=== PATIENT | male | born 1970 | race Caucasian/White ===

== ENCOUNTER 2017-07-01 05:30 | Emergency (ER) | payer OTHER, SELFPAY ==
[2017-07-01 05:31] VITALS: BP 187/106; PULSE 99; RESP 17; TEMP 36.5; O2SAT 99; BMI 32.3
--- NOTE | 2017-07-01 05:37 | NURSING ---
CALLED FOR EKG PER RN REQUEST, PULLED OLD EKG'S FOR
--- NOTE | 2017-07-01 05:43 | RAD_ITS ---
STUDY: X-RAY CHEST REASON FOR EXAM: Male, 47 years old. Left-sided chest pain TECHNIQUE: PA and lateral views of the chest. COMPARISON: None. FINDINGS: The lungs are clear and expanded. There is no demonstrated pleural abnormality. Normal size heart. Normal mediastinum and ladi. Normal visualized pulmonary arteries. Normal visualized aortic arch and descending thoracic aorta. Normal visualized thoracic spine. Normal visualized ribs, clavicles, and shoulders. There is no demonstrated abnormality of the visualized soft tissue structures of the upper abdomen. RAD/Chest PA and Lateral IMPRESSION: No pulmonary edema, congestive heart failure or confluent pneumonia. Electronically Signed: Vickie Marcelo MD at 6:47 EDT , Service support ,
--- NOTE | 2017-07-01 05:43 | EKG12_ITS ---
Test Reason : REPEAT CP Blood Pressure : / mmHG Vent. Rate : 077 BPM Atrial Rate : 077 BPM P-R Int : 126 ms QRS Dur : 082 ms QT Int : 376 ms P-R-T Axes : 001 030 035 degrees QTc Int : 425 ms Normal sinus rhythm Normal ECG Confirmed by JHONATHAN DONOHUE MD ([id number]), television news video editor GUTIERREZ ORTEGA ([id number]) on 07/04/2017 2:00:28 PM Referred By: JIMMY Confirmed By:JHONATHAN DONOHUE MD
[2017-07-01 05:58] VITALS: O2SAT 99
[2017-07-01 05:58] LABS: Absolute Lymphocyte Count 3.12 X10^3/ul (0.83-4.51); Absolute Neutrophil Count 3.5 X10^3/uL (2.0-7.7); Basophil# 0.06 X10^3/uL; Basophil% 0.7 % (0-1); Eosinophil# 0.55 X10^3/uL; Eosinophils% 6.8 % (0-5); Hematocrit 46.6 % (40-54); Hemoglobin 15.8 g/dl (13.0-16.5); Lymphocyte # 3.12 X10^3/ul (4.0); Lymphocyte % 38.8 % (19-41); Mean Corp Hgb Conc 33.9 g/gl (32-36); Mean Corpuscular Volume 88.6 fL (80-94); Mean Platelet Vol. 10.4 fl (6.2-12.0); Monocyte# 0.81 X10^3/uL; Monocyte% 10.1 % (0-10); Neutrophil # 3.48 X10^3/uL (2.7-7.7); Neutrophil % 43.4 % (47-70); Platelet Count 188 K/mm3 (150-450); RBC Distribution Width CV 13.1 % (11.6-14.6); RBC Distribution Width SD 42.1 fl (35.1-43.9); Red Blood Count 5.26 M/mm3 (4.6-6.2)
[2017-07-01] MEDS: Aspirin 81 MG TAB.CHEW 324 MG PO (05:59)
[2017-07-01 06:01] LABS: POSITIVE COUNT NO; POSITIVE DIFFERENTIAL NO; POSITIVE MORPHOLOGY NO
[2017-07-01 06:02] VITALS: BP 168/105; PULSE 83; RESP 12; O2SAT 99
[2017-07-01 06:05] LABS: Anion Gap 9 (5-15); BUN 21 mg/dL (7-18); BUN/Creat Ratio 19.3 RATIO (10-20); Calcium,Total 8.6 mg/dL (8.5-10.1); Chloride 105 mmol/L (98-107); Creatinine, Serum 1.09 mg/dL (0.70-1.30); EST Glomerular Filtration Rate 76 mL/min (>60); Est Glom Filt Rate - Afr Amer 92 mL/min (>60); Estimated Creatinine Clearance 81.98 ml/min; Glucose 107 mg/dL (74-106); Potassium 3.8 mmol/L (3.5-5.1); Sodium Level 140 mmol/L (136-145)
--- NOTE | 2017-07-01 06:08 | EKG12_ITS ---
Test Reason : CP Blood Pressure : / mmHG Vent. Rate : 100 BPM Atrial Rate : 100 BPM P-R Int : 130 ms QRS Dur : 080 ms QT Int : 352 ms P-R-T Axes : 044 053 059 degrees QTc Int : 454 ms Normal sinus rhythm Normal ECG Confirmed by JHONATHAN DONOHUE MD ([id number]), film and video editor GUTIERREZ ORTEGA ([id number]) on 07/04/2017 2:00:10 PM Referred By: JUAN Confirmed By:JHONATHAN DONOHUE MD
--- NOTE | 2017-07-01 06:23 | ED.DCSUM_ITS ---
- ER Visit Summary Date of Service: 07/01/17 Chief Complaint: Chest pain History of Present Illness: The patient is a 47 M who presents with chest pain. It began yesterday. He notes that he was digging some holes earlier in the day and initially attributed this to a muscle strain. He complains of a tightness in his left chest which radiates towards his shoulder. No associated symptoms such as diaphoresis nausea vomiting or shortness of breath. No history of exertional symptoms. No history of prior similar symptoms. His tightness is only mild currently. He denies any medical history. He is not a smoker. There is no family history of coronary disease. Physical Examination: Afebrile blood pressure 187/106 vitals otherwise unremarkable Moist mucous membranes Heart regular rate and rhythm Lungs are clear Abdomen soft Extremities nontender no edema 2+ symmetric radial pulses Test Results: EKG shows normal sinus rhythm at a rate of 100 with no acute ischemic changes. Repeat EKG shows normal sinus rhythm at a rate of 77 unchanged from prior. Two-view chest x-ray on my review shows no acute process. Laboratory studies unremarkable. Emergency Department Course and Treatment: Patient presents with atypical chest pain. He has no associated symptoms such as shortness of breath nausea or diaphoresis. He has no exertional symptoms. CRISTI risk score is 0. Heart score is 1 based on age. I do feel he is low risk. Repeat EKG remained unremarkable. We will obtain a 2 hour repeat troponin. This will be signed out to the oncoming physician. If normal I do believe the patient can be discharged home to follow-up as an outpatient. He was advised of his elevated blood pressure and the need for follow-up. He was also advised that he may require further outpatient workup including a stress test. He understands to return for new or worsening symptoms. Treatment Plan: [] Disposition: Pending repeat troponin Impression: Chest pain This note was generated with [employer] dictation software. It may contain incorrect words, spelling, and punctuation that were not noted in review of the chart prior to signing ED Disposition - Plan for ED Patient: Chief Complaint: Chest Pain Referrals: Tuan Yancey DO [Primary Care Provider] -
--- NOTE | 2017-07-01 06:23 | ED.DEP ---
ED Disposition - Plan for ED Patient: Chief Complaint: Chest Pain Instructions: ED Chest Pain Atypical Unkn Cause Referrals: Tuan Yancey DO [Primary Care Provider] -
[2017-07-01 07:15] VITALS: BP 128/89; PULSE 73; RESP 16; O2SAT 95
[2017-07-01 08:43] VITALS: BP 115/88; PULSE 62; RESP 14; O2SAT 97
== END 2017-07-01 08:44 | disposition home or self-care (01) ==
PROVIDERS: Emergency Provider Emergency Medicine; Family Provider Family Medicine; PCP Family Medicine
DX: R07.89 Other chest pain (principal); R03.0 Elevated blood-pressure reading, without diagnosis of hypertension
CPT/HCPCS: 71046; 80048; 84484; 85025; 93005; 99285; A4216

== ENCOUNTER → 2018-09-18 14:11 | Outpatient (CLI) | payer OTHER, SELFPAY ==
[2018-09-18 11:12] VITALS: BMI 32.3
== END ==
PROVIDERS: Family Provider Family Medicine; PCP Family Medicine; Referring Provider Physician Assistant Surgical; Visit Provider Physician Assistant Surgical
DX: J02.9 Acute pharyngitis, unspecified (principal)
CPT/HCPCS: 87081

== ENCOUNTER → 2020-04-24 10:00 | Outpatient (CLI) | payer OTHER, SELFPAY ==
[2020-04-20 14:52] VITALS: BMI 29.0
[2020-04-24 12:47] LABS: Absolute Lymphocyte Count 1.56 X10^3/uL (0.83-4.51); Absolute Neutrophil Count 3.6 X10^3/uL (2.0-7.7); Basophil# 0.08 X10^3/uL; Basophil% 1.3 % (0-1); Eosinophil# 0.27 X10^3/uL; Eosinophils% 4.3 % (0-5); Hematocrit 46.7 % (40-54); Hemoglobin 15.6 g/dL (13.0-16.5); Lymphocyte # 1.56 X10^3/ul (4.0); Lymphocyte % 24.8 % (19-41); Mean Corp Hgb Conc 33.4 g/dL (32-36); Mean Corpuscular Hgb 29.8 pg (27.0-32.0); Mean Corpuscular Volume 89.3 fL (80-94); Monocyte# 0.77 X10^3/uL; Monocyte% 12.3 % (0-10); NRBC Flagged by Analyzer 0 % (0-5); Neutrophil # 3.59 X10^3/uL (2.7-7.7); Neutrophil % 57.1 % (47-70); Platelet Count 186 K/mm3 (150-450); RBC Distribution Width CV 12.3 % (11.6-14.6); RBC Distribution Width SD 40.4 fl (35.1-43.9); Red Blood Count 5.23 M/mm3 (4.6-6.2); White Blood Count 6.3 K/mm3 (4.4-11.0)
[2020-04-24 13:03] LABS: ALB/GLOB Ratio 1.1 RATIO (0.9-2.4); AST(SGOT) 14 U/L (15-37); Alanine Aminotransfer ALT/SGPT 35 U/L (16-61); Albumin, Serum 3.6 g/dL (3.2-5.0); Alkaline Phosphatase 66 U/L (45-117); Anion Gap 5 (5-15); BUN 18 mg/dL (7-18); BUN/Creat Ratio 18.4 RATIO (10-20); Calcium,Total 8.9 mg/dL (8.5-10.1); Chloride 110 mmol/L (98-107); Cholesterol 198 mg/dL (200); Creatinine, Serum 0.98 mg/dL (0.70-1.30); EST Glomerular Filtration Rate 85 mL/min (>60); Est Glom Filt Rate - Afr Amer 103 mL/min (>60); Globulin 3.4 g/dL (2.2-4.2); Glucose 86 mg/dL (74-106); High Density Lipoprotein 43 mg/dL; PSA,Total - Annual Screen 4.13 ng/mL (0.00-4.00); Potassium 3.8 mmol/L (3.5-5.1); Sodium Level 142 mmol/L (136-145); Triglycerides 124 mg/dL; Very Low Density Lipoprotein 25 mg/dL (5-40)
== END ==
PROVIDERS: PCP Internal Medicine; Referring Provider Internal Medicine; Visit Provider Internal Medicine
DX: Z13.220 Encounter for screening for lipoid disorders (principal); Z13.1 Encounter for screening for diabetes mellitus
CPT/HCPCS: 36415; 80053; 80061; 84153; 85025; G0103

== ENCOUNTER 2020-05-16 05:56 | Day surgery (SDC) | payer OTHER, SELFPAY ==
[2020-04-20 14:52] VITALS: BMI 29.0
[2020-05-16] VITALS (10 sets, daily range): BP systolic 102–157; BP diastolic 60–112; PULSE 77–92; RESP 16–18; TEMP 36.4–37.2; O2SAT 94–100; BMI 28.5
--- NOTE | 2020-05-16 06:18 | PCM.HP.STD ---
Problem List (1) Screening for intestinal cancer Status: Acute History of Present Illness Date of Admission: 05/16/20 The patient is a 50 year old M who presents today for screening colonoscopy. He has not had a previous one. He presents via open access. He has no specific complaints today. He denies abdominal pain or bright red blood per rectum or melena. He denies family history of colon cancer or polyps Past Medical History Allergies No Known Allergies Allergy (Verified 05/09/20 14:46) Home Medications: Ambulatory Orders Medication Instructions Recorded NK 05/09/20 Smoking Status: Never smoker Tobacco Use: Non-smoker Review of Systems Constitutional: Denies: Fever Cardiovascular: Denies: Chest Pain Respiratory: Denies: Cough, Shortness of Breath Gastrointestinal: Denies: Abdominal Pain, Hematochezia, Melena Endocrine: Denies: Change in Body Habitus VTE Information - Inpt Only VTE Present on Admission: No - Physical Exam Vitals/I&O's: Body Mass Index (BMI) 29.0 General: Alert, Oriented x3, Cooperative, No apparent distress HEENT: Atraumatic Oral: Moist Mucosa Neck: Supple Lungs: Clear to auscultation, Normal air movement Cardiovascular: Regular rate, Regular Rhythm Abdomen: Bowel Sounds Present, Soft, Non Tender Extremities: No Calf Tenderness Psych/Mental Status: Normal Affect Microbiology Past 72 Hours 05/15/20 10:15 Interface Orders SARS-CoV-2 Antigen (Rapid) - Final Assessment/Plan All Active Problems (Last Reviewed 04/20/20 @ 14:52 by Isaura Fallon) Screening for intestinal cancer (Acute) Sinusitis, acute (Acute) The patient presents via open access today. We will proceed with a screening colonoscopy with possible biopsy or polypectomy as indicated. He has had an opportunity to ask and have questions answered. He states that he tolerated his bowel prep well. We will proceed as noted. Warren Doan M.D., F.A.C.S. Procedure Criteria Procedure Type: Elective COVID Risk Discussion: The surgeon/proceduralist and patient have discussed in detail the risk of exposure to and/or potential harm posed by the COVID-19 virus with having a surgery/procedure at this time versus the risk of delaying the surgery/procedure. It is not possible to know either the risk of delaying the surgery or procedure or chance of getting an infection with perfect accuracy, but a joint decision was made between the patient and the surgeon/proceduralist to proceed at this time with the scheduled surgery/procedure as indicated on the consent form.
[2020-05-16] MEDS: Lactated Ringers 1,000 ML 100 ML IV (06:31)
--- NOTE | 2020-05-16 07:32 | OP.CCLET_ITS ---
05/16/2020 Michell Bruno [facility] [address] [place] [address] Re : Colonoscopy procedure for Ty Katia Dear Dr. Bruno This procedure was performed on Saturday, May 16, 2020. My impressions and recommendations are as follows: Impressions : - The entire examined colon is normal. - No specimens collected. Recommendations : - Discharge patient to home. - Resume previous diet. - Continue present medications. - Repeat colonoscopy in 10 years for screening purposes. My findings are described in the full procedure note, which is enclosed. If I can be of further assistance, please feel free to contact me at Doctor phone number(s): Work: . Sincerely, Warren Doan MD 05/16/2020 7:32:02 AM This report has been signed electronically.
--- NOTE | 2020-05-16 07:32 | OP.COLON_ITS ---
Patient Name: Ty Montalvo Procedure Date: 05/16/2020 7:05 AM Date of : 1970 Age: 50 Procedure: Colonoscopy Indications: Screening for colorectal malignant neoplasm Providers: Warren Doan MD Referring MD: Michell Bruno Medicines: Midazolam 5 mg IV, Meperidine 100 mg IV Patient Profile: Last Colonoscopy: none. The patient's first colonoscopy is today. Complications: No immediate complications. Procedure: Pre-Anesthesia Assessment: - Prior to the procedure, a History and Physical was performed, and patient medications and allergies were reviewed. The patient's tolerance of previous anesthesia was also reviewed. The risks and benefits of the procedure and the sedation options and risks were discussed with the patient. All questions were answered, and informed consent was obtained. Prior Anticoagulants: The patient has taken no previous anticoagulant or antiplatelet agents. ASA Grade Assessment: I - A normal, healthy patient. After reviewing the risks and benefits, the patient was deemed in satisfactory condition to undergo the procedure. After I obtained informed consent, the scope was passed under direct vision. Throughout the procedure, the patient's blood pressure, pulse, and oxygen saturations were monitored continuously. The adult colonoscope was introduced through the anus and advanced to the cecum, identified by appendiceal orifice and ileocecal valve. The colonoscopy was performed without difficulty. The patient tolerated the procedure well. The quality of the bowel preparation was good. The ileocecal valve and the appendiceal orifice were photographed. Moderate Sedation: Moderate (conscious) sedation was personally administered by the endoscopist. The following parameters were monitored: oxygen saturation, heart rate, blood pressure, and response to care. Total physician intraservice time was 15 minutes. Scope In: 7:16:59 AM Scope Withdrawal Time 0 hours 6 minutes 37 seconds Scope Out: 7:27:43 AM Total Procedure Duration Time 0 hours 10 minutes 44 seconds Findings: The perianal examination was normal. The colon (entire examined portion) appeared normal. Impression: - The entire examined colon is normal. - No specimens collected. Recommendation: - Discharge patient to home. - Resume previous diet. - Continue present medications. - Repeat colonoscopy in 10 years for screening purposes. Procedure Code(s): --- Professional --- 31014, Colonoscopy, flexible; diagnostic, including collection of specimen(s) by brushing or washing, when performed (separate procedure) 66588, 59, Moderate sedation services provided by the same physician or other qualified health career and guidance counselor performing the diagnostic or therapeutic service that the sedation supports, requiring the presence of an independent trained observer to assist in the monitoring of the patient's level of consciousness and physiological status; initial 15 minutes of intraservice time, patient age 5 years or older Diagnosis Code(s): --- Professional --- Z12.11, Encounter for screening for malignant neoplasm of colon CPT copyright 2017 [employer]. All rights reserved. The codes documented in this report are preliminary and upon clinical coder review may be revised to meet current compliance requirements. Warren Doan MD 05/16/2020 7:32:02 AM This report has been signed electronically. Number of Addenda: 0 Note Initiated On: 05/16/2020 7:05 AM
== END 2020-05-16 08:13 | disposition home or self-care (01) ==
LOC: EN 05:57 → AC 05:57
PROVIDERS: PCP Internal Medicine; Referring Provider Internal Medicine; Visit Provider Surgery
PROC: 0DJD8ZZ Inspection of Lower Intestinal Tract, Via Natural or Artificial Opening Endoscopic (ICD-10-PCS; CPT 45378; principal; 2020-05-16 06:55)
DX: Z12.11 Encounter for screening for malignant neoplasm of colon (principal); J01.90 Acute sinusitis, unspecified; Z20.822 Contact with and (suspected) exposure to COVID-19
CPT/HCPCS: 45378; 87426; 99152; 99153; C9803; J7120

== ENCOUNTER → 2020-08-03 13:59 | Outpatient (CLI) | payer OTHER, SELFPAY ==
[2020-05-16 06:22] VITALS: BMI 28.5
[2020-08-03 15:46] LABS: ALB/GLOB Ratio 1.2 RATIO (0.9-2.4); AST(SGOT) 20 U/L (15-37); Alanine Aminotransfer ALT/SGPT 39 U/L (16-61); Albumin, Serum 3.7 g/dL (3.2-5.0); Alkaline Phosphatase 68 U/L (45-117); Anion Gap 4 (5-15); BUN 21 mg/dL (7-18); BUN/Creat Ratio 21.5 RATIO (10-20); Calcium,Total 8.8 mg/dL (8.5-10.1); Chloride 107 mmol/L (98-107); Creatinine, Serum 0.98 mg/dL (0.70-1.30); EST Glomerular Filtration Rate 86 mL/min (>60); Est Glom Filt Rate - Afr Amer 104 mL/min (>60); Globulin 3.2 g/dL (2.2-4.2); Glucose 102 mg/dL (74-106); PSA,Total- Diagnostic 2.55 ng/mL (0.0-4.0); Potassium 3.5 mmol/L (3.5-5.1); Protein, Total 6.9 g/dL (6.4-8.2); Sodium Level 140 mmol/L (136-145)
== END ==
PROVIDERS: PCP Internal Medicine; Referring Provider Internal Medicine; Visit Provider Internal Medicine
DX: R97.20 Elevated prostate specific antigen [PSA] (principal); R17 Unspecified jaundice
CPT/HCPCS: 36415; 80053; 84153

== ENCOUNTER 2021-06-20 11:11 | Outpatient (CLI) | payer OTHER, SELFPAY ==
[2021-06-20 12:01] LABS: Absolute Lymphocyte Count 1.89 X10^3/uL (0.83-4.51); Absolute Neutrophil Count 5.7 X10^3/uL (2.0-7.7); Basophil# 0.07 X10^3/uL; Basophil% 0.8 % (0-1); Eosinophil# 0.34 X10^3/uL; Eosinophils% 3.8 % (0-5); Hematocrit 46.8 % (40-54); Hemoglobin 15.7 g/dL (13.0-16.5); Lymphocyte # 1.89 X10^3/ul (0.83-4.51); Lymphocyte % 20.9 % (19-41); Mean Corp Hgb Conc 33.5 g/dL (32-36); Mean Corpuscular Hgb 29.6 pg (27.0-32.0); Mean Corpuscular Volume 88.3 fL (80-94); Mean Platelet Vol. 10.8 fl (6.2-12.0); Monocyte# 0.99 X10^3/uL; Monocyte% 10.9 % (0-10); NRBC Flagged by Analyzer 0 % (0-5); Neutrophil # 5.73 X10^3/uL (2.7-7.7); Neutrophil % 63.3 % (47-70); Platelet Count 203 K/mm3 (150-450); RBC Distribution Width CV 12.2 % (11.6-14.6); RBC Distribution Width SD 39.8 fl (35.1-43.9); White Blood Count 9.1 K/mm3 (4.4-11.0)
[2021-06-20 12:28] LABS: Vitamin D,25 Hydroxy 17.7 ng/mL
[2021-06-20 12:38] LABS: ALB/GLOB Ratio 0.8 RATIO (0.9-2.4); AST(SGOT) 22 U/L (15-37); Alanine Aminotransfer ALT/SGPT 35 U/L (16-61); Alkaline Phosphatase 59 U/L (45-117); Anion Gap 7 (5-15); BUN 20 mg/dL (7-18); BUN/Creat Ratio 20.3 RATIO (10-20); Calcium,Total 8.8 mg/dL (8.5-10.1); Chloride 107 mmol/L (98-107); Creatinine, Serum 0.99 mg/dL (0.70-1.30); EST Glomerular Filtration Rate 84 mL/min (>60); Est Glom Filt Rate - Afr Amer 102 mL/min (>60); Globulin 3.7 g/dL (2.2-4.2); Glucose 91 mg/dL (74-106); PSA,Total- Diagnostic 2.49 ng/mL (0.0-4.0); Potassium 4.4 mmol/L (3.5-5.1); Protein, Total 6.7 g/dL (6.4-8.2); Sodium Level 140 mmol/L (136-145)
== END 2021-06-20 23:59 | disposition home or self-care (01) ==
PROVIDERS: PCP Internal Medicine; Referring Provider Internal Medicine; Visit Provider Internal Medicine
DX: E55.9 Vitamin D deficiency, unspecified (principal); R97.20 Elevated prostate specific antigen [PSA]; Z12.5 Encounter for screening for malignant neoplasm of prostate
CPT/HCPCS: 36415; 80053; 82306; 84153; 85025

== ENCOUNTER → 2021-09-06 | Outpatient (CLI) | payer OTHER, SELFPAY ==
[2021-09-06 12:26] LABS: Vitamin D,25 Hydroxy 91.4 ng/mL
[2021-09-06 12:38] LABS: Ferritin 74 ng/mL (26-388); Iron 77 ug/dL (65-175); Iron Binding Capacity,Total 307 ug/dL (250-450); PERCENT IRON SATURATION 25.1 % (15.0-55.0)
== END | disposition home or self-care (01) ==
LOC: BIMLAB 09:52
PROVIDERS: PCP Internal Medicine; Referring Provider Internal Medicine; Visit Provider Internal Medicine
DX: E55.9 Vitamin D deficiency, unspecified (principal); R53.83 Other fatigue
CPT/HCPCS: 36415; 82306; 82728; 83540; 83550

== ENCOUNTER → 2022-07-18 | Outpatient (CLI) | payer OTHER, SELFPAY ==
[2022-07-18 12:42] LABS: Absolute Lymphocyte Count 1.08 X10^3/uL (0.83-4.51); Absolute Neutrophil Count 5.4 X10^3/uL (2.0-7.7); Basophil# 0.07 X10^3/uL; Basophil% 0.9 % (0-1); Eosinophil# 0.11 X10^3/uL; Eosinophils% 1.4 % (0-5); Hemoglobin 15.3 g/dL (13.0-16.5); Lymphocyte # 1.08 X10^3/ul (0.83-4.51); Lymphocyte % 14.2 % (19-41); Mean Corp Hgb Conc 33.3 g/dL (32-36); Mean Corpuscular Hgb 29.5 pg (27.0-32.0); Mean Corpuscular Volume 88.8 fL (80-94); Mean Platelet Vol. 11.3 fl (6.2-12.0); Monocyte# 0.91 X10^3/uL; NRBC Flagged by Analyzer 0 % (0-5); Neutrophil # 5.41 X10^3/uL (2.7-7.7); Neutrophil % 71.2 % (47-70); Platelet Count 195 K/mm3 (150-450); RBC Distribution Width CV 12.5 % (11.6-14.6); RBC Distribution Width SD 40.9 fl (35.1-43.9); Red Blood Count 5.18 M/mm3 (4.6-6.2); White Blood Count 7.6 K/mm3 (4.4-11.0)
[2022-07-18 13:08] LABS: ALB/GLOB Ratio 0.9 RATIO (0.9-2.4); AST(SGOT) 23 U/L (15-37); Alanine Aminotransfer ALT/SGPT 34 U/L (16-61); Albumin, Serum 3.3 g/dL (3.2-5.0); Alkaline Phosphatase 57 U/L (45-117); Anion Gap 3 (5-15); BUN 22 mg/dL (7-18); BUN/Creat Ratio 21.6 RATIO (10-20); Calcium,Total 9.3 mg/dL (8.5-10.1); Chloride 108 mmol/L (98-107); Cholesterol 207 mg/dL (200); Creatinine, Serum 1.02 mg/dL (0.70-1.30); EST Glomerular Filtration Rate 81 mL/min (>60); Est Glom Filt Rate - Afr Amer 98 mL/min (>60); Globulin 3.7 g/dL (2.2-4.2); Glucose 90 mg/dL (74-106); High Density Lipoprotein 47 mg/dL; PSA,Total - Annual Screen 3.28 ng/mL (0.00-4.00); Potassium 3.9 mmol/L (3.5-5.1); Sodium Level 140 mmol/L (136-145); Triglycerides 147 mg/dL; Very Low Density Lipoprotein 29 mg/dL (5-40)
== END | disposition home or self-care (01) ==
LOC: LAB 11:48
PROVIDERS: PCP Internal Medicine; Referring Provider Internal Medicine; Visit Provider Internal Medicine
DX: Z00.00 Encounter for general adult medical examination without abnormal findings (principal); Z13.220 Encounter for screening for lipoid disorders; Z12.5 Encounter for screening for malignant neoplasm of prostate
CPT/HCPCS: 36415; 80053; 80061; 84153; 85025; G0103

== ENCOUNTER → 2023-08-07 | Outpatient (CLI) | payer OTHER, SELFPAY ==
[2023-08-07 12:19] LABS: Absolute Lymphocyte Count 0.77 X10^3/uL (0.83-4.51); Absolute Neutrophil Count 3.2 X10^3/uL (2.0-7.7); Basophil# 0.06 X10^3/uL; Basophil% 1.2 % (0-1); Eosinophil# 0.13 X10^3/uL; Eosinophils% 2.7 % (0-5); Hematocrit 44.7 % (40-54); Hemoglobin 14.8 g/dL (13.0-16.5); Lymphocyte # 0.77 X10^3/ul (0.83-4.51); Lymphocyte % 15.9 % (19-41); Mean Corp Hgb Conc 33.1 g/dL (32-36); Mean Corpuscular Hgb 29.7 pg (27.0-32.0); Mean Corpuscular Volume 89.8 fL (80-94); Mean Platelet Vol. 11.2 fl (6.2-12.0); Monocyte# 0.67 X10^3/uL; Monocyte% 13.9 % (0-10); NRBC Flagged by Analyzer 0 % (0-5); Neutrophil # 3.19 X10^3/uL (2.7-7.7); Neutrophil % 66.1 % (47-70); Platelet Count 170 K/mm3 (150-450); RBC Distribution Width SD 42.4 fl (35.1-43.9); Red Blood Count 4.98 M/mm3 (4.6-6.2); White Blood Count 4.8 K/mm3 (4.4-11.0)
[2023-08-07 12:41] LABS: Vitamin D,25 Hydroxy 42.1 ng/mL
[2023-08-07 13:08] LABS: ALB/GLOB Ratio 0.9 RATIO (0.9-2.4); AST(SGOT) 20 U/L (15-37); Alanine Aminotransfer ALT/SGPT 28 U/L (16-61); Albumin, Serum 3.4 g/dL (3.2-5.0); Alkaline Phosphatase 57 U/L (45-117); Anion Gap 4 (5-15); BUN 17 mg/dL (7-18); BUN/Creat Ratio 16.3 RATIO (10-20); Calcium,Total 8.7 mg/dL (8.5-10.1); Chloride 107 mmol/L (98-107); Cholesterol 154 mg/dL (200); Creatinine, Serum 1.04 mg/dL (0.70-1.30); EST Glomerular Filtration Rate 79 mL/min (>60); Est Glom Filt Rate - Afr Amer 95 mL/min (>60); Globulin 3.6 g/dL (2.2-4.2); Glucose 95 mg/dL (74-106); High Density Lipoprotein 41 mg/dL; PSA,Total - Annual Screen 3.31 ng/mL (0.00-4.00); Potassium 4.4 mmol/L (3.5-5.1); Sodium Level 139 mmol/L (136-145); Thyroid Stim Hormone (TSH) 0.84 uIU/mL (0.358-3.74); Triglycerides 66 mg/dL; Very Low Density Lipoprotein 13 mg/dL (5-40)
== END | disposition home or self-care (01) ==
LOC: BIMLAB 09:39
PROVIDERS: PCP Internal Medicine; Visit Provider Internal Medicine
DX: Z00.00 Encounter for general adult medical examination without abnormal findings (principal); Z13.220 Encounter for screening for lipoid disorders; E55.9 Vitamin D deficiency, unspecified; Z12.5 Encounter for screening for malignant neoplasm of prostate
CPT/HCPCS: 36415; 80053; 80061; 82306; 84153; 84443; 85025; G0103

== ENCOUNTER → 2025-01-19 | Outpatient (CLI) | payer OTHER, SELFPAY ==
[2025-01-19 11:58] LABS: Hematocrit 44.0 % (40-54); Hemoglobin 14.8 g/dL (13.0-16.5); Immature Granulocytes Count 0.010 X10^3/uL (0.0-0.0); Mean Corp Hgb Conc 33.6 g/dL (32-36); Mean Corpuscular Volume 86.6 fL (80-94); Mean Platelet Vol. 10.4 fl (6.2-12.0); NRBC Flagged by Analyzer 0 % (0-5); Platelet Count 168 K/mm3 (150-450); RBC Distribution Width CV 12.6 % (11.6-14.6); RBC Distribution Width SD 39.8 fl (35.1-43.9); Red Blood Count 5.08 M/mm3 (4.6-6.2); White Blood Count 5.5 K/mm3 (4.4-11.0)
[2025-01-19 12:36] LABS: AST(SGOT) 23 U/L (<=37); Alanine Aminotransfer ALT/SGPT 21 U/L (<=46); Albumin, Serum 3.8 g/dL (3.5-5.0); Alkaline Phosphatase 69 U/L (40-129); Anion Gap 9 (5-15); BUN 16 mg/dL (4-19); BUN/Creat Ratio 17.5 RATIO (10-20); Calcium,Total 8.8 mg/dL (7.6-11.0); Carbon Dioxide 25.7 mmol/L (21.0-32.0); Chloride 105 mmol/L (98-108); Cholesterol 197 mg/dL (<=200); Globulin 3.1 g/dL (2.2-4.2); Glucose 92 mg/dL (70-99); Low Density Lipoprotein Calc. 130 mg/dL; Magnesium 2.1 mg/dL (1.5-2.2); PSA,Total - Annual Screen 3.76 ng/mL (0.02-4.00); Potassium 4.5 mmol/L (3.3-5.1); Triglycerides 114 mg/dL; Very Low Density Lipoprotein 23 mg/dL (5-40); Vitamin B12 298 pg/mL (180-914); Vitamin D,25 Hydroxy 24.4 ng/mL (30-100); cholesterol:hdl ratio screen 4.48
== END | disposition home or self-care (01) ==
PROVIDERS: PCP Internal Medicine; Referring Provider Internal Medicine; Visit Provider Internal Medicine
DX: Z00.00 Encounter for general adult medical examination without abnormal findings (principal); R97.20 Elevated prostate specific antigen [PSA]; E55.9 Vitamin D deficiency, unspecified; G51.0 Bell's palsy; E53.8 Deficiency of other specified B group vitamins; Z12.5 Encounter for screening for malignant neoplasm of prostate
CPT/HCPCS: 36415; 80053; 80061; 82306; 82607; 83735; 84153; 84443; 85025; G0103

== ENCOUNTER 2025-01-28 06:28 | Emergency (ER) | payer OTHER, SELFPAY ==
--- NOTE | 2025-01-28 | RAD_ITS ---
PROCEDURE: CHEST PA AND LATERAL 01/28/2025 REASON FOR EXAM: CHEST PAIN TECHNIQUE: Procedure Code: RADCXR Modality: DX Procedure: CHEST PA AND LATERAL COMPARISON: None. FINDINGS: Hardware and support lines: None. Heart: Negative. Lungs: Negative for infiltrates, or pulmonary edema. Pleura: No pleural thickening. No pleural effusion. Mediastinum and aorta: Negative for hilar adenopathy. Mildly tortuous thoracic aorta. Bones: Degenerative changes of the shoulders. Age-appropriate degenerative changes of the spine. Other: Remainder of the exam negative. RAD/Chest PA and Lateral IMPRESSION: Negative for acute cardiopulmonary disease. Reading Location: [id number]
[2025-01-28 06:28] VITALS: BP 211/106; PULSE 104; RESP 18; TEMP 36.6; O2SAT 100; BMI 29.3
[2025-01-28 06:33] VITALS: BP 202/91; PULSE 83; RESP 15; O2SAT 100
--- NOTE | 2025-01-28 06:45 | EKG12_ITS ---
Test Reason : CP Blood Pressure : */* mmHG Vent. Rate : 83 BPM Atrial Rate : 83 BPM P-R Int : 124 ms QRS Dur : 92 ms QT Int : 364 ms P-R-T Axes : 3 34 51 degrees QTcB Int : 427 ms Normal sinus rhythm Normal ECG Confirmed by CHARANJIT RODRIGUEZ, JHONATHAN ([id number]), editorial assistant ANUPAM PATEL ([id number]) on 01/31/2025 6:58:42 AM Referred By: HARVEY Confirmed By: JHONATHAN DONOHUE MD
--- NOTE | 2025-01-28 06:56 | EX.ED.DYSGE1 ---
HPI History of Present Illness Chief Complaint: Chest Pain Informant: patient Narrative Narrative: Patient is a 54-year-old male with recent diagnosis of hypertension. He started on amlodipine yesterday. He states he woke this morning and then noticed midsternal to left-sided chest pain radiating towards his left arm. He states there is no associated nausea vomiting or diaphoresis with this. However with his new onset hypertension he is concerned this could be cardiac in nature and secondary to this comes in for evaluation [facility] Medical History Elevated PSA Essential hypertension Facial pain Holcomb's palsy Home Medications ?Medication ?Instructions ?Recorded ?Last Taken ?Type amlodipine 10 mg tablet 10 mg PO QDAY #60 tabs 01/27/25 Unknown Rx Allergy/AdvReac Type Severity Reaction Status Date / Time No Known Allergies Allergy Verified 01/28/25 06:33 Surgical History No history of previous surgery Social History Smoking Status: Never smoker alcohol intake: never substance use type: does not use ROS ROS ED Constitutional Constitutional ED: Denies chills or fever(s) Eyes Eyes: Denies blurry vision or change in vision ENT ENT ED: Denies sore throat Cardiovascular Cardiovascular: Reports chest pain; Denies palpitations or racing heartbeat Respiratory/Chest Respiratory/Chest: Denies cough or dyspnea Gastrointestinal Gastrointestinal: Denies abdominal pain, diarrhea, nausea or vomiting Musculoskeletal Musculoskeletal: Denies back pain Integumentary Denies rash Neurologic Neurologic: Denies headache(s) Psychiatric Psychiatric: Reports anxiety Hematologic/Lymphatic Hematologic/Lymphatic: Denies easy bleeding or easy bruising EXAM Physical Exam Const Vital Signs: 01/28/25 06:28 01/28/25 06:33 01/28/25 07:28 Temperature 97.8 F Temperature Source Oral Pulse Rate 104 H 83 67 Respiratory Rate 18 15 16 Blood Pressure 211/106 H 202/91 H Blood Pressure Mean 141 128 Pulse Ox 100 100 96 Oxygen Delivery Method Room Air Room Air Room Air 01/28/25 08:16 Temperature Temperature Source Pulse Rate 69 Respiratory Rate 18 Blood Pressure 139/87 H Blood Pressure Mean 104 Pulse Ox 97 Oxygen Delivery Method Room Air Positive well nourished and well developed General Appearance ED: well developed; Negative for pallor HEENT HEENT Narrative: Normocephalic atraumatic Eyes PERRL and EOMs intact bilaterally General Eye ED: Negative for scleral icterus Neck supple and no JVD Neck Narrative: No nuchal rigidity or meningeal signs Chest Wall palpation of chest normal Resp normal respiratory effort and clear to auscultation bilaterally Cardio regular rate and regular rhythm Rate: other Other Details: Heart is regular rate and rhythm without murmurs rubs or gallop Radial and carotid pulses are equal and symmetric No carotid bruit noted GI normal to inspection, nondistended, normoactive bowel sounds, non-tender, non-distended and no masses GI Narrative: No voluntary guarding or rigidity no pulsatile mass or fluid wave Auscultation: normoactive bowel sounds Palpation: soft Extremity normal to inspection Extremity Narrative: No asymmetric edema no pitting edema negative Homans' sign bilaterally Neuro oriented x3, CN's II-XII intact bilaterally and no sensory deficits noted Sensorium / Orientation: alert Motor Exam: strength 5/5 throughout Psych Mood & Affect: anxious Skin no rashes or lesions noted General Skin Exam: Negative for jaundice or pallor MDM MDM MDM Narrative Medical decision making narrative: Patient arrived to the ER hypertensive but otherwise with stable vitals. Risk factors for cardiovascular disease or hypertension and family history. He is nervous and anxious and this could be a cause for his elevated blood pressure as well. However in order to rule out dissection or pulmonary embolus a D-dimer will be added to the cardiac workup assessing for acute kidney injury acute blood loss anemia electrolyte abnormality or ACS. The patient's troponin initially is 7 going against ACS and EKG does not show findings concerning for acute ischemia or STEMI. He does not have a headache or confusion or change in mental status so I have low concern for hypertensive encephalopathy or acute hemorrhagic stroke and therefore I feel no need for head CT. The patient's had improvement of his symptoms with improvement of his blood pressure and anxiety. At this time his delta troponin and D-dimer are still pending and therefore he will be signed up to the day physician Dr. Vargas History & Record Review Discussion w/independent historian: Patient Lab Data Attestation: I reviewed the patient's lab results. Labs: Laboratory Results - last 24 hr 01/28/25 06:35 WBC 7.0 RBC 5.34 Hgb 15.9 Hct 46.7 MCV 87.5 MCH 29.8 MCHC 34.0 RDW Std Deviation 40.6 RDW Coeff of Jenelle 12.8 Plt Count 199 MPV 11.1 Immature Gran % (Auto) 0.400 Neut % (Auto) 56.4 Lymph % (Auto) 21.0 [place] % (Auto) 15.3 H Eos % (Auto) 5.6 H Baso % (Auto) 1.3 H Absolute Neuts (auto) 3.9 Absolute Lymphs (auto) 1.47 Nucleated RBC % 0 Platelet Estimate ADEQUATE PT 12.4 INR 0.9 APTT 20.9 L D-Dimer Quant (PE/DVT) 0.31 Sodium 139 Potassium 3.7 Chloride 104 Carbon Dioxide 22.6 Anion Gap 13 BUN 17 Creatinine 0.84 Estim Creat Clear Calc 105.67 Est GFR (MDRD) Non-Af 102 BUN/Creatinine Ratio 20.6 H Glucose 105 H Calcium 8.9 Magnesium 2.1 Troponin T High Sens 7 Radiography Diagnostic Testing: Clinical Impression(s) from Imaging Studies Chest X-Ray 01/28/25 00:00 IMPRESSION: Negative for acute cardiopulmonary disease. Reading Location: [facility] Chest x-ray as interpreted by the emergency medicine physician reveals no acute infiltrate pneumothorax pleural effusion or widening of the mediastinum Management Discussion w/another healthcare provider: Communications Agent Discharge Plan Triage Chief Complaint: Chest Pain ED Provider: Dwayne Vargas Dx/Rx/DC Orders Clinical Impression: Essential hypertension, Nonspecific chest pain Prescriptions: No Action amlodipine 10 mg tablet 10 mg PO QDAY Qty: 60 3RF Primary Care Provider: Michell Bruno Referrals: Michell Bruno MD [Primary Care Provider, Internal Medicine - [facility]] Print Language: Slovenian
[2025-01-28] MEDS: 0.9% Normal Saline (1000mL) 1,000 ML 999 ML IV (06:57)
[2025-01-28 07:00] LABS: Hematocrit 46.7 % (40-54); Hemoglobin 15.9 g/dL (13.0-16.5); Immature Granulocytes Count 0.030 X10^3/uL (0.0-0.0); Mean Corp Hgb Conc 34.0 g/dL (32-36); Mean Corpuscular Volume 87.5 fL (80-94); Mean Platelet Vol. 11.1 fl (6.2-12.0); NRBC Flagged by Analyzer 0 % (0-5); POSITIVE COUNT YES; RBC Distribution Width CV 12.8 % (11.6-14.6); RBC Distribution Width SD 40.6 fl (35.1-43.9); Red Blood Count 5.34 M/mm3 (4.6-6.2); White Blood Count 7.0 K/mm3 (4.4-11.0)
[2025-01-28 07:06] LABS: Partial Thromboplast Time 20.9 Seconds (24.1-36.2); Prothrombin Time (Protime)PT. 12.4 SECONDS (11.7-14.9)
[2025-01-28 07:14] LABS: Differential Indicated SCAN CRITERIA MET
[2025-01-28 07:20] LABS: Troponin T High Sensitivity 7 ng/L (<=22)
[2025-01-28 07:22] LABS: Anion Gap 13 (5-15); BUN 17 mg/dL (4-19); BUN/Creat Ratio 20.6 RATIO (10-20); Calcium,Total 8.9 mg/dL (7.6-11.0); Carbon Dioxide 22.6 mmol/L (21.0-32.0); Chloride 104 mmol/L (98-108); Estimated Creatinine Clearance 105.67 ml/min (50-250); Glucose 105 mg/dL (70-99); Magnesium 2.1 mg/dL (1.5-2.2); Potassium 3.7 mmol/L (3.3-5.1)
[2025-01-28 07:28] VITALS: PULSE 67; RESP 16; O2SAT 96
[2025-01-28 08:01] LABS: Platelet Count 199 K/mm3 (150-450)
--- NOTE | 2025-01-28 08:03 | ECHOD_ITS ---
Reason For Study Reason For Study: HTN Procedure This was a 2D Doppler, Color Flow transthoracic echocardiogram. Exam performed portable in ED. Left Ventricle Normal LV size. Left ventricular systolic function is normal. The left ventricular ejection fraction is 65 %. No regional wall motion abnormalities noted. Right Ventricle Normal RV size. Normal systolic function. Atria Normal left atrium. Normal right atrium. Bubble contrast study is positive for PFO. Mitral Valve Normal mitral valve. Mild (1+) eccentric mitral valve insufficiency. Tricuspid Valve Normal tricuspid valve. Mild (1+) tricuspid valve insufficiency. Pulmonary artery systolic pressure is 22 mmHg. Aortic Valve Normal aortic valve. Trisinus/trileaflet aortic valve. Mild (1+) aortic valve insufficiency. Pulmonic Valve Normal pulmonic valve. Great Vessels Normal aortic root. The pulmonary artery is normal size. Inferior vena cava collapse with respiration. Pericardium/Pleural No pericardial effusion. Medication Performed a rapid injection of agitated mix of 9 cc saline and 1cc air to assess for atrial septal defect. MMode/2D Measurements & Calculations LVIDd: 4.6 cm IVSd: 1.0 cm Ao root diam: 3.2 cm LVIDs: 2.8 cm LVPWd: 0.97 cm RVDd: 3.3 cm FS: 40.0 % LAV(MOD-bp): 52.8 ml LVAd ap4: 29.3 cm2 LVAd ap2: 28.2 cm2 LAV(MOD-bp) Indexed: 27.0 ml/m2 LVLd ap4: 8.0 cm LVLd ap2: 8.1 cm LAV(MOD-sp2): 55.5 ml EDV(MOD-sp4): 88.8 ml EDV(MOD-sp2): 85.0 ml LAV(MOD-sp4): 44.0 ml EDV(sp4-el): 90.5 ml EDV(sp2-el): 83.2 ml LVAs ap4: 15.5 cm2 LVAs ap2: 15.3 cm2 LVLs ap4: 6.5 cm LVLs ap2: 7.0 cm ESV(MOD-sp4): 31.1 ml ESV(MOD-sp2): 28.8 ml ESV(sp4-el): 31.4 ml ESV(sp2-el): 28.1 ml EF(MOD-sp4): 64.9 % EF(MOD-sp2): 66.1 % EF(sp4-el): 65.3 % SV(MOD-sp4): 57.7 ml SV(MOD-sp2): 56.2 ml SV(sp4-el): 59.1 ml SI(MOD-sp4): 29.5 ml/m2 SI(MOD-sp2): 28.8 ml/m2 LA A4 area: 18.6 cm2 LA dimension(2D): 3.7 cm RA A4 area: 14.4 cm2 TAPSE: 2.1 cm Time Measurements MV dec time: 0.17 sec Doppler Measurements & Calculations MV E max sergo: 91.8 cm/sec Lat Peak E' Sergo: 12.9 cm/sec Med Peak E' Sergo: 10.0 cm/sec MV A max sergo: 97.0 cm/sec E/E' lat: 7.1 E/E' med: 9.2 MV E/A: 0.95 MV dec slope: 543.8 cm/sec2 Ao V2 max: 141.3 cm/sec AI max sergo: 386.3 cm/sec Ao max P.0 mmHg AI max P.7 mmHg Ao V2 mean: 96.6 cm/sec AI dec slope: 152.6 cm/sec2 Ao mean P.1 mmHg AI P1/2t: 741.5 msec Ao V2 VTI: 31.7 cm AV (velocity ratio): 0.82 LV V1 max: 122.8 cm/sec PA V2 max: 120.5 cm/sec TR max sergo: 213.9 cm/sec LV V1 max P.0 mmHg TR max P.4 mmHg LV V1 mean P.0 mmHg LV V1 mean: 79.3 cm/sec LV V1 VTI: 26.2 cm ECHO/Echo Complete Interpretation Summary Bubble contrast study is positive for PFO. Normal LV size. Left ventricular systolic function is normal. The left ventricular ejection fraction is 65 %. Mild (1+) eccentric mitral valve insufficiency. Mild (1+) aortic valve insufficiency. The global longitudinal strain is normal. The global longitudinal strain = -22 % (normal). Ordering Physician: Sourav Pereira Referring Physician: Michell Bruno M.D. Performed By: Paige Murry RDCS
[2025-01-28 08:16] VITALS: BP 139/87; PULSE 69; RESP 18; O2SAT 97
[2025-01-28 08:32] LABS: D-Dimer Quantitative (DVT/PE) 0.31 FEU/ug/m (0.27-0.49)
[2025-01-28 08:59] VITALS: PULSE 79; RESP 18; O2SAT 100
--- NOTE | 2025-01-28 09:06 | PCM.CONS.C ---
Assessment & Plan Assessment/Plan (1) Nonspecific chest pain: PLAN: He presents with chest discomfort which appears to be somewhat nonspecific. His EKG does not demonstrate any changes and his cardiac enzymes thus far are normal. He did have an echocardiogram which demonstrates preserved left ventricular ejection fraction. Recommendation at this time is that if his second set of cardiac enzymes are normal then he be discharged on medication for outpatient follow-up. (2) Essential hypertension: PLAN: His blood pressure is uncontrolled. He does not have any evidence of LVH and this may be new or a component of anxiety. I would recommend that he be discharged on amlodipine 10 mg a day, losartan 100 mg a day and follow-up in the admitting coordinator office. PLAN: Plan A mild dose of anxiolytic may be worthwhile as well. HPI Consult Data Date of Consult: 01/28/25 HPI Narrative HPI Narrative: BERNARDINO ART, is a 54 M who presents to the emergency room with chest discomfort and elevated blood pressure. He had recently seen his primary physician was noted to have elevated blood pressure and made appointment to see as an cardiology. He had previously not had any chest discomfort he was prescribed outpatient amlodipine which he took but says that he woke up this morning with mild diaphoresis chest discomfort radiating to his left arm. He presented to the emergency room and his initial blood pressure was over 200 mmHg systolic his EKG demonstrated normal sinus rhythm with no acute changes. He had previously not had any chest discomfort dizziness diaphoresis nausea or vomiting. He remains very active. He has not previously been on any medications. [facility] Medical History Elevated PSA Essential hypertension Facial pain Holcomb's palsy Home Medications ?Medication ?Instructions ?Recorded ?Last Taken ?Type amlodipine 10 mg tablet 10 mg PO QDAY #60 tabs 01/27/25 Unknown Rx Allergy/AdvReac Type Severity Reaction Status Date / Time No Known Allergies Allergy Verified 01/28/25 06:33 Surgical History No history of previous surgery Social History Smoking Status: Never smoker alcohol intake: never substance use type: does not use ROS Constitutional Constitutional: Denies fever(s) or weight loss Eyes Eyes: Reports systems reviewed and no addt'l complaints, except as documented ENT HEENT: Reports systems reviewed and no addt'l complaints, except as documented Cardiovascular Cardiovascular: Denies chest pain at rest, chest pain with activity, dyspnea at rest, dyspnea on exertion, edema, palpitations or paroxysmal nocturnal dyspnea Respiratory/Chest Respiratory/Chest: Denies dyspnea on exertion, productive cough, shortness of breath at rest or shortness of breath with exertion Gastrointestinal Gastrointestinal: Denies change in bowel habits, nausea, vomiting or weight changes Genitourinary Genitourinary: Denies difficulty urinating Musculoskeletal Musculoskeletal: Denies joint stiffness or muscle weakness Integumentary Integumentary: Denies lesions Neurologic Neurologic: Denies dizziness or syncope Psychiatric Psychiatric: Denies anxiety Endocrine Endocrinology: Denies excessive sweating or fatigue Hematologic/Lymphatic Hematologic/Lymphatic: Denies anemia Allergic/Immunologic Allergic/Immunologic: Denies seasonal rhinorrhea Physical Exam Const alert and oriented x3 Constitutional Narrative: Appears to be anxious General Appearance: other Orientation / Consciousness: awake HEENT normocephalic Eyes PERRL Neck full ROM Carotids: normal carotid upstroke Chest inspection of chest normal Resp normal respiratory effort and clear to auscultation bilaterally Cardio regular rate and regular rhythm Palpation: normal PMI Rate: regular rate Rhythm: regular rhythm Extremity normal to inspection Objective Data Vital Signs: Vital Signs Temp Pulse Resp BP Pulse Ox O2 Del Method 97.8 F 79 18 139/87 H 100 Room Air 01/28/25 06:28 01/28/25 08:59 01/28/25 08:59 01/28/25 08:16 01/28/25 08:59 01/28/25 08:59 Oxygen Delivery Method Room Air Weight: 193 lb 1.999 oz Body Mass Index (BMI) 29.3 Intake & Output: Intake and Output for Last 24 Hours 01/26/25 01/27/25 01/28/25 23:59 23:59 23:59 Intake Total 1000 / 1000 Balance 1000 / 1000 Lab / Micro Data 01/28/25 06:35 01/28/25 06:35 Labs: Laboratory Results - last 24 hr 01/28/25 06:35: WBC 7.0, RBC 5.34, Hgb 15.9, Hct 46.7, MCV 87.5, MCH 29.8, MCHC 34.0, RDW Std Deviation 40.6, RDW Coeff of Jenelle 12.8, Plt Count 199, MPV 11.1, Immature Gran % (Auto) 0.400, Neut % (Auto) 56.4, Lymph % (Auto) 21.0, [place] % (Auto) 15.3 H, Eos % (Auto) 5.6 H, Baso % (Auto) 1.3 H, Absolute Neuts (auto) 3.9, Absolute Lymphs (auto) 1.47, Nucleated RBC % 0, Platelet Estimate ADEQUATE, PT 12.4, INR 0.9, APTT 20.9 L, D-Dimer Quant (PE/DVT) 0.31, Sodium 139, Potassium 3.7, Chloride 104, Carbon Dioxide 22.6, Anion Gap 13, BUN 17, Creatinine 0.84, Estim Creat Clear Calc 105.67, Est GFR (MDRD) Non-Af 102, BUN/Creatinine Ratio 20.6 H, Glucose 105 H, Calcium 8.9, Magnesium 2.1, Troponin T High Sens 7 Cardiology Labs/Tests 01/28/25 06:35: WBC 7.0, RBC 5.34, Hgb 15.9, Hct 46.7, MCV 87.5, MCH 29.8, MCHC 34.0, Plt Count 199, MPV 11.1, Immature Gran % (Auto) 0.400, Neut % (Auto) 56.4, Lymph % (Auto) 21.0, [place] % (Auto) 15.3 H, Eos % (Auto) 5.6 H, Baso % (Auto) 1.3 H, Absolute Neuts (auto) 3.9, Nucleated RBC % 0, PT 12.4, INR 0.9, APTT 20.9 L, D-Dimer Quant (PE/DVT) 0.31, Sodium 139, Potassium 3.7, Chloride 104, Carbon Dioxide 22.6, Anion Gap 13, BUN 17, Creatinine 0.84, Est GFR (MDRD) Non-Af 102, BUN/Creatinine Ratio 20.6 H, Glucose 105 H, Calcium 8.9, Magnesium 2.1 Rhythm: EKG: ECHO: Stress Test: Cardiac Cath: PCI: CT Surgery: Holter monitor: EPS: PPM: CXR: Chest CT Scan: Radiography Diagnostic Testing: Radiology Impression Chest X-Ray 01/28/25 00:00 IMPRESSION: Negative for acute cardiopulmonary disease. Reading Location: [facility] Echocardiogram 01/28/25 08:03 Interpretation Summary Bubble contrast study is positive for PFO. Normal LV size. Left ventricular systolic function is normal. The left ventricular ejection fraction is 65 %. Mild (1+) eccentric mitral valve insufficiency. Mild (1+) aortic valve insufficiency. The global longitudinal strain is normal. The global longitudinal strain = -22 % (normal). Ordering Physician: Sourav Pereira Referring Physician: Michell Bruno M.D. Performed By: Paige Murry RDCS TI Risk Score for UA/STEMI Assesmment (YES = 1) Risk Stratification Applicable: Yes Age > or = 65: No > or = 3 CAD risk factors (HTN, Hypercholesterolemia, Diabetes, family hx, current smoker): No Known CAD (Stenosis > or = 50%): No ASA used in past 7 days: No Severe angina (> or = 2 episodes in 24 hrs): No EKG ST change > or = 0.5mm: No Positive cardiac markers: No Score CRISTI Risk Score of mortality/ recurrent ischemic event over the next 14 days: 0-1 = 4.7% - Low Risk
[2025-01-28 09:13] LABS: Troponin T High Sens 2 HR 8 ng/L (<=22)
[2025-01-28 09:42] VITALS: BP 132/84; PULSE 76; RESP 18; TEMP 36.8; O2SAT 100
== END 2025-01-28 09:43 | disposition home or self-care (01) ==
PROVIDERS: Emergency Medicine; Emergency Provider Emergency Medicine; PCP Internal Medicine; Visit Provider Emergency Medicine
DX: R07.89 Other chest pain (principal); I10 Essential (primary) hypertension; F41.9 Anxiety disorder, unspecified; Z79.899 Other long term (current) drug therapy
CPT/HCPCS: 71046; 80048; 83735; 84484; 85025; 85379; 85610; 85730; 93005; 93306; 96361; 96374; 96375; 99283; A4216

== ENCOUNTER → 2025-04-04 | Outpatient (CLI) | payer OTHER, SELFPAY ==
[2025-04-04 09:56] LABS: Mucous, Urine 0 SEEN /hpf (<or=2+); Red Blood Cells-Urine 0 SEEN /hpf (0-5); Squamous Epithelial Cells - UA 0 SEEN /hpf (0-5)
[2025-04-04 10:53] LABS: Color, Urine Yellow (Yellow); Glucose, Dipstick Normal (Normal); Ketone-Dipstick 50 mg/dl (Negative); Leukocyte Esterase-Dipstick Negative /ul (Negative); Nitrite-Dipstick Negative (Negative); Occult Blood-Urine 25 /ul (Negative); Protein-Dipstick 100 mg/dl (Negative); Specific Gravity, Urine 1.030 (1.002-1.030); Urine Bilirubin Dipstick Negative (Negative)
== END | disposition home or self-care (01) ==
LOC: LAB 09:51
PROVIDERS: PCP Internal Medicine; Referring Provider Internal Medicine; Visit Provider Internal Medicine
DX: R35.1 Nocturia (principal)
CPT/HCPCS: 81001